=== PATIENT | female | born 1990 | race American Indian/Alaskan Native ===

== ENCOUNTER 2017-04-23 15:43 | Emergency (ER) | payer MEDICAID ==
[2017-04-23 15:58] VITALS: BP 157/94
[2017-04-23 16:53] LABS: Basophils % (Auto) 0.6 % (0.0-1.8); Eosinophils % (Auto) 1.7 % (0.0-4.3); Hematocrit 37.2 % (30.3-42.9); Hemoglobin 11.9 gm/dl (10.1-14.3); Mean Corpuscular HGB Conc 32 % (30-34); Mean Corpuscular Volume 72 fl (79-97); Platelet Count 248 K/mm3 (140-440); Red Cell Distribution Width 17.1 % (13.2-15.2); White Blood Count 4.9 K/mm3 (4.5-11.0)
[2017-04-23] MEDS ORDERED: NACL 0.9% 1000 ML 1,000 ML IV ONE (17:01)
[2017-04-23 17:58] LABS: Mean Corpuscular Hemoglobin 23 pg (28-32)
[2017-04-23] MEDS ORDERED: TORADOL IV ONE (17:58)
[2017-04-23 18:17] LABS: Anion Gap 19 mmol/L; BUN/Creatinine Ratio 12.85; Blood Urea Nitrogen 9 mg/dL (7-17); Carbon Dioxide 22 mmol/L (22-30); Chloride 103.2 mmol/L (98-107); Glucose 103 mg/dL (65-100); Potassium 3.7 mmol/L (3.6-5.0); Sodium 140 mmol/L (137-145)
[2017-04-23 18:38] LABS: Bilirubin,Urine NEG (Negative); Blood,Urine SM (Negative); Ketones,Urine NEG (Negative); Leukocyte Esterase,Urine NEG (Negative); Mucus,Urine FEW /HPF; Nitrite,Urine NEG (Negative); Protein,Urine <15 mg/dL mg/dL (Negative); Urobilinogen,Urine < 2.0 mg/dL (<2.0)
--- NOTE | 2017-04-23 18:53 | Emergency Department Report ---
HPI - General Chief Complaint: Urogenital-Female Time Seen by Provider: 04/23/17 17:01 - HPI HPI: Chief complaint: Menstrual cramps 26-year-old -[place] female, presents to the ED, with pelvic discomfort , heavy bleeding, on her menstrual cycle. Patient denied any risk for . Did not take any medication at home, denies any alleviating or exacerbating factors. Patient also denied any fever, chills, night sweats. Patient also complaint of elevated blood pressure since giving . The babies run at home 150s over 90s. ED Past Medical Hx - Past Medical History Previous Medical History?: No - Surgical History Past Surgical History?: Yes Additional Surgical History: X 2 - Family History Family history: hypertension - Social History Smoking Status: Current Every Day Smoker Substance Use Type: Alcohol, Marijuana - Medications Home Medications: Home Medications Medication Instructions Recorded Confirmed Last Taken Type Ketorolac [Toradol] 10 mg PO Q6H PRN #14 tablet 04/23/17 Unknown Rx amLODIPine [Norvasc] 10 mg PO DAILY #30 tab 04/23/17 Unknown Rx ED Review of Systems ROS: Stated complaint: SEVERE CRAMPS,DIABETES TESING Other details as noted in HPI Comment: All other systems reviewed and negative Gastrointestinal: other Genitourinary: abnormal menses Physical Exam - Physical Exam Vital Signs: Vital Signs 04/23/17 15:55 Temperature 98.4 F Pulse Rate 87 Respiratory 17 Rate Blood Pressure 157/94 O2 Sat by Pulse 100 Oximetry Physical Exam: Gen. alert and oriented 3 in no distress Head atraumatic normocephalic Eyes PERR LA EOMI Chest regular rate and rhythm normal S1-S2 lungs clear bilaterally Abdomen soft nondistended Back no point tenderness paravertebral tenderness Neuro no focal deficit. Psych normal mood. : Patient refused. ED Course Vital Signs 04/23/17 15:55 Temperature 98.4 F Pulse Rate 87 Respiratory 17 Rate Blood Pressure 157/94 O2 Sat by Pulse 100 Oximetry ED Medical Decision Making - Lab Data Result diagrams: 04/23/17 16:14 04/23/17 16:14 Critical care attestation.: If time is entered above; I have spent that time in minutes in the direct care of this critically ill patient, excluding procedure time. ED Disposition Clinical Impression: Menorrhagia with regular cycle, Hypertension Disposition: DC-01 TO HOME OR SELFCARE Is pt being admited?: No Does the pt Need Aspirin: No Condition: Stable Instructions: Hypertension (ED) Prescriptions: amLODIPine [Norvasc] 10 mg PO DAILY #30 tab Ketorolac [Toradol] 10 mg PO Q6H PRN #14 tablet PRN Reason: Pain Referrals: PRIMARY CARE, [Primary Care Provider] - 3-5 Days
== END 2017-04-23 19:14 | disposition home or self-care (01) ==
LOC: ED 15:43
DX: N92.0 Excessive and frequent menstruation with regular cycle (principal); I10 Essential (primary) hypertension; F17.200 Nicotine dependence, unspecified, uncomplicated; F12.10 Cannabis abuse, uncomplicated
CPT/HCPCS: 36415; 80048; 81001; 82962; 84703; 85025; 96374; 99283; J1885

== ENCOUNTER 2017-05-08 20:23 | Emergency (ER) | payer MEDICAID ==
[2017-05-08 21:57] VITALS: BP 132/98
[2017-05-08] MEDS ORDERED: MOTRIN PO ONE ×2 (23:11→23:13)
[2017-05-08] MEDS ORDERED: NORCO 5/325 ONE (23:11)
[2017-05-08] MEDS ORDERED: NORCO 5/325 PO ONE (23:13)
[2017-05-09] MEDS ORDERED: BOOSTRIX IM ONE (00:02)
--- NOTE | 2017-05-09 01:19 | XRay Report ---
FINAL REPORT PROCEDURE: XR HAND 3+V RT TECHNIQUE: Right hand radiographs, AP, lateral, and oblique views. CPT 41071 HISTORY: laceration to 2nd and 5th digit COMPARISON: No prior studies are available for comparison. FINDINGS: Fracture (s) and/or Dislocation(s): None . Alignment: Normal . Joint space(s): Normal . Soft tissues: There is soft tissue swelling of the 2nd and 5th digits. A laceration of the 5th digit is visible.. Bone mineralization: Normal . Foreign bodies: None . IMPRESSION: There are no fractures or malalignments. There is no foreign body.. There is soft tissue swelling of the 2nd and 5th digits. A laceration of the 5th digit is visible..
[2017-05-09] MEDS ORDERED: XYLOCAINE 1% MPF 5 mL INFILTRATI ONE (01:51)
[2017-05-09] MEDS ORDERED: TRIPLE ANTIBIOTIC TP ONE (02:34)
--- NOTE | 2017-05-09 05:24 | Emergency Department Report ---
ED Laceration HPI - HPI Chief Complaint: Extremity Injury, Upper Stated Complaint: FINGER LAC Occurred When: Today Location: Upper Extremity Severity: mild Tetanus Status: Not up to Date Laceration Symptoms: Yes Pain, No Foreign Body Sensation, No Numbness, No Weakness Other History: 26 year old female presents to ED with finger laceration to 2nd and 5th digit on palmar side right hand from 7pm. patient states she cut her hand on a piece of sheet metal. patient has no up to date tetanus shot. patient is stable, neurologically intact and in no acute distress. ED Review of Systems ROS: Stated complaint: FINGER LAC Other details as noted in HPI Constitutional: denies: chills, fever Eyes: denies: eye pain, eye discharge, vision change ENT: denies: ear pain, throat pain Respiratory: denies: cough, shortness of breath, wheezing Cardiovascular: denies: chest pain, palpitations Endocrine: no symptoms reported Gastrointestinal: denies: abdominal pain, nausea, diarrhea Genitourinary: denies: urgency, dysuria, discharge Musculoskeletal: denies: back pain, joint swelling, arthralgia Skin: other (laceration to right 2nd and 5th finger). denies: rash, lesions Neurological: denies: headache, weakness, paresthesias Psychiatric: denies: anxiety, depression Hematological/Lymphatic: denies: easy bleeding, easy bruising ED Past Medical Hx - Past Medical History Previous Medical History?: No - Surgical History Additional Surgical History: X 2 - Social History Smoking Status: Current Every Day Smoker Substance Use Type: Alcohol - Medications Home Medications: Home Medications Medication Instructions Recorded Confirmed Last Taken Type Ketorolac [Toradol] 10 mg PO Q6H PRN #14 tablet 04/23/17 Unknown Rx amLODIPine [Norvasc] 10 mg PO DAILY #30 tab 04/23/17 Unknown Rx Cephalexin [Keflex] 500 mg PO Q12HR #14 cap 05/09/17 Unknown Rx Ketorolac [Toradol] 10 mg PO Q6H #12 tablet 05/09/17 Unknown Rx Laceration Physical Exam - Exam General: Vital signs noted. No distress. Alert and acting appropriately. Laceration Location: Upper Extremity Laceration Exam: Yes Normal Distal CMS, No Foreign Body, No Exposed Tendon, Vessel, or Nerve, No Tendon Injury ED Course Vital Signs 05/08/17 21:54 Temperature 98.0 F Pulse Rate 74 Respiratory 16 Rate Blood Pressure 132/98 O2 Sat by Pulse 100 Oximetry - Laceration /Wound Repair Right Distal Palm Finger Wound Location: upper extremity Wound Length (cm): 1 Wound's Depth, Shape: superficial, flap Wound Explored: clean Irrigated w/ Saline (ccs): 50 Betadine Prep?: Yes Anesthesia: 1% Lidocaine Wound Repaired With: sutures, Dermabond Suture Size/Type: 5:0, proline Number of Sutures: 2 Layer Closure?: No Sterile Dressing Applied?: Yes Progress: patient tolerated procedure well. Two 5-0 sutures placed in 5th digit laceration. Dermabond applied to superficial lac on 2nd digit. ED Medical Decision Making - Radiology Data Radiology results: report reviewed XR right hand No fractures or malalignments. There is no foreign body. There is soft tissue swelling of the 2nd and 5th digits. A laceration of the 5 digit is visible. - Medical Decision Making 26 year old female presents to ED with finger lacerations. patient tolerated procedure well. patient has had tetanus shot during ED visit. patient agrees and understands to return to ED within 7-10 days for suture removal. Critical care attestation.: If time is entered above; I have spent that time in minutes in the direct care of this critically ill patient, excluding procedure time. ED Disposition Clinical Impression: Laceration of right hand Qualifiers: Encounter type: initial encounter Foreign body presence: without foreign body Qualified Code(s): S61.411A - Laceration without foreign body of right hand, initial encounter Disposition: DC-01 TO HOME OR SELFCARE Is pt being admited?: No Does the pt Need Aspirin: No Condition: Stable Instructions: Suture Care (ED), Finger Laceration (ED) Additional Instructions: Please return to ED within 7-10 days for suture removal. Prescriptions: Cephalexin [Keflex] 500 mg PO Q12HR #14 cap Ketorolac [Toradol] 10 mg PO Q6H #12 tablet Referrals: PRIMARY CARE, [Primary Care Provider] - 3-5 Days Forms: Work/School Release Form(ED)
== END 2017-05-09 02:50 | disposition home or self-care (01) ==
LOC: ED 20:23
DX: S61.217A Laceration without foreign body of left little finger without damage to nail, initial encounter (principal); F17.200 Nicotine dependence, unspecified, uncomplicated; W45.8XXA Other foreign body or object entering through skin, initial encounter; Y93.89 Activity, other specified; Y99.9 Unspecified external cause status; Y92.9 Unspecified place or not applicable
CPT/HCPCS: 81025; 90471; 90715; A6250